=== PATIENT | male | born 1975 | race Caucasian/White ===

== ENCOUNTER 2017-07-27 17:41 | Inpatient (IN) | payer SELFPAY ==
[~2017-07-27] VITALS: Ht 182.9 cm; Wt 78.2 kg
[~2017-07-27 17:41] MED LIST: AMOX-355 PO; HYDR1TAB PO; SULF1TAB38 PO
[2017-07-27] MEDS ORDERED: NS IV 1000 ML 1,000 ML IV ONE (18:25)
[2017-07-27] MEDS ORDERED: FAMOTIDINE 20MG/2ML IV (PEPCID) IVP ONE (18:30)
[2017-07-27] MEDS ORDERED: ONDANSETRON 4 MG/2 ML (SDV) Z0FRAN IVP ONE (18:30)
[2017-07-27 18:34] LABS: BASOPHILS % (AUTO) 0 % (0-10); EOSINOPHILS # (AUTO) 0.2 10^3/uL (0.0-0.3); EOSINOPHILS % (AUTO) 1 % (0-10); LYMPHOCYTES # (AUTO) 2.2 X 10^3 (1.0-4.0); LYMPHOCYTES % (AUTO) 18 % (12-44); MEAN CORPUSCULAR HEMOGLOBIN 33 PG (25-34); MEAN CORPUSCULAR HGB CONC 35 G/DL (32-36); MEAN CORPUSCULAR VOLUME 93 FL (80-99); MEAN PLATELET VOLUME 8.8 FL (7.4-10.4); MONOCYTES # (AUTO) 0.9 X 10^3 (0.0-1.0); MONOCYTES % (AUTO) 7 % (0-12); NEUTROPHILS # (AUTO) 9.2 X 10^3 (1.8-7.8); NEUTROPHILS % (AUTO) 73 % (42-75); PLATELET COUNT 355 10^3/uL (130-400); RED BLOOD COUNT 5.24 10^6/uL (4.35-5.85); RED CELL DISTRIBUTION WIDTH 12.7 % (10.0-14.5); WHITE BLOOD COUNT 12.6 10^3/uL (4.3-11.0)
[2017-07-27] MEDS ORDERED: HYOSCYAMINE 0.125 MG (LEVSIN) TAB PO ONE (19:30)
[2017-07-27] MEDS ORDERED: NS 100 ML (IVPB) BAG IV ONE (19:30)
[2017-07-27] MEDS ORDERED: fentaNYL INJECTION 100 MCG/2 ML AMP IVP ONE ×2 (19:30→21:00)
[2017-07-27] MEDS ORDERED: IOHEXOL 350 MG/ML 100 ML (OMNIPAQUE 350) VIAL IV ONE (19:30)
[2017-07-27 19:33] LABS: BILIRUBIN,URINE NEGATIVE (NEGATIVE); KETONES,URINE 1+ (NEGATIVE); LEUKOCYTE ESTERASE ,URINE 1+ (NEGATIVE); NITRITE,URINE NEGATIVE (NEGATIVE); PH,URINE 5 (5-9); PROTEIN,URINE 1+ (NEGATIVE); UROBILINOGEN,URINE NORMAL (NORMAL)
--- NOTE | 2017-07-27 19:48 | Diagnostic Imaging Report ---
INDICATION: Abdominal pain. TECHNIQUE: Single-view chest at 7:13 p.m. CORRELATION STUDY: None. FINDINGS: Heart size is within normal limits. Mediastinum is slightly prominent. Vasculature is also slightly prominent. No pulmonary infiltrate. IMPRESSION: 1. Mediastinum and hilar structures do appear to be slightly prominent. Possibility of adenopathy is not completely excluded. Would consider short-term followup two-view chest imaging for reassessment. Dictated by: Dictated on workstation # [id number]
[2017-07-27 19:52] LABS: ALANINE AMINOTRANSFERASE 44 U/L (0-55); ALBUMIN 4.5 GM/DL (3.2-4.5); ALCOHOL < 10 MG/DL (<10); ANION GAP 9 MMOL/L (5-14); ASPARTATE AMINO TRANSFERASE 30 U/L (5-34); BILIRUBIN,TOTAL 0.8 MG/DL (0.1-1.0); BLOOD UREA NITROGEN 19 MG/DL (7-18); BUN/CREATININE RATIO 22; CARBON DIOXIDE 23 MMOL/L (21-32); CHLORIDE 106 MMOL/L (98-107); CREATININE SERUM 0.86 MG/DL (0.60-1.30); GFR ESTIMATED > 60; GLUCOSE 110 MG/DL (70-105); LIPASE 8 U/L (8-78); MAGNESIUM 2.1 MG/DL (1.8-2.4); POTASSIUM 4.1 MMOL/L (3.6-5.0); SODIUM 138 MMOL/L (135-145); TOTAL PROTEIN 8.3 GM/DL (6.4-8.2); hs C REACTIVE PROTEIN 0.07 MG/DL (0.00-0.50)
--- NOTE | 2017-07-27 20:03 | Diagnostic Imaging Report ---
INDICATION: Abdominal pain, nausea, vomiting, dizziness and weakness since this weekend.. TECHNIQUE: Supine view of the abdomen 7:13 PM CORRELATION STUDY: None FINDINGS: There is a rather prominent gas distention of the gastrointestinal tract. The stomach appears to be significantly distended with likely a significant amount of retained gastric contents. Prominent gas distention of the small bowel. There is also however gas noted within the colon. Bowel gas pattern somewhat indeterminate. No gross free intraperitoneal air. IMPRESSION: 1. Rather prominent distention of the gastrointestinal tract. This appears to involve the stomach, small bowel as well as likely colon, a somewhat unusual appearance. This may reflect a pronounced ileus. Underlying obstruction not completely excluded. Dictated by: Dictated on workstation # [id number]
--- NOTE | 2017-07-27 20:28 | Diagnostic Imaging Report ---
PROCEDURE: CT abdomen and pelvis with contrast. TECHNIQUE: Multiple contiguous axial images were obtained through the abdomen and pelvis after administration of intravenous contrast. INDICATION: 41-year-old male with generalized abdominal pain. COMPARISONS: None. FINDINGS: The lung bases are clear. Cardiac contour is normal. Liver shows uniform attenuation. Gallbladder shows no evidence of radiopaque stones, sludge, wall thickening or pericholecystic fluid. Spleen and GE junction are normal. Stomach is moderately distended with foodstuff and gas. The duodenal sweep is mostly decompressed. Pancreas shows sharp margins. Adrenals are normal. Kidneys appear normal in size, composition and contour with symmetrical perfusion and excretion of contrast. The bladder is underfilled. The nonopacified loops of small bowel do show a mid segmental distention with fluid-filled loops of bowel with air-fluid levels. The ileum is normal in caliber. In the right upper quadrant, there is some swirling of the mesenteric root suggesting a possible intestinal hernia versus small volvulus. The large bowel contains mostly liquid stool but is nondistended. There is no free air free fluid or adenopathy. IMPRESSION: 1. Findings consistent with a near-complete mid small bowel obstruction, possibly due to internal hernia versus possible small segment of intestinal volvulus. 2. Additional nonemergent findings, as described above. Dictated by: Dictated on workstation # [id number]
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
[2017-07-27] MEDS ORDERED: LORazepam INJ 2 MG/ML (ATIVAN) VIAL ONE (20:53)
[2017-07-27] MEDS ORDERED: LORazepam INJ 2 MG/ML (ATIVAN) VIAL IVP ONE (21:00)
[2017-07-27] MEDS ORDERED: HURRICAINE EXT TUBE (BENZOCAINE) ONE (21:06)
[2017-07-27 21:40] VITALS: BP 131/89
[2017-07-27] MEDS: D5 1/2 NS W/KCL 20 MEQ/L 1,000 ML IV ONE ×2 (22:32→22:56)
[2017-07-27] MEDS: D5 1/2 NS W/KCL 20 MEQ/L 1,000 ML IV SCH (22:32)
[2017-07-27] MEDS ORDERED: ONDANSETRON 4 MG/2 ML (SDV) Z0FRAN IV PRN (22:45)
[2017-07-27] MEDS: fentaNYL INJECTION 100 MCG/2 ML AMP IV PRN (23:58)
[2017-07-28 03:18] VITALS: BP 126/82
[2017-07-28] MEDS: fentaNYL INJECTION 100 MCG/2 ML AMP IV PRN ×4 (05:05→20:00)
[2017-07-28] MEDS: D5 1/2 NS W/KCL 20 MEQ/L 1,000 ML IV SCH ×3 (05:45→22:13)
[2017-07-28 06:14] LABS: BASOPHILS % (AUTO) 0 % (0-10); EOSINOPHILS # (AUTO) 0.1 10^3/uL (0.0-0.3); EOSINOPHILS % (AUTO) 1 % (0-10); LYMPHOCYTES # (AUTO) 1.3 X 10^3 (1.0-4.0); LYMPHOCYTES % (AUTO) 16 % (12-44); MEAN CORPUSCULAR HEMOGLOBIN 33 PG (25-34); MEAN CORPUSCULAR HGB CONC 35 G/DL (32-36); MEAN CORPUSCULAR VOLUME 95 FL (80-99); MEAN PLATELET VOLUME 8.6 FL (7.4-10.4); MONOCYTES # (AUTO) 0.8 X 10^3 (0.0-1.0); MONOCYTES % (AUTO) 10 % (0-12); NEUTROPHILS % (AUTO) 73 % (42-75); PLATELET COUNT 289 10^3/uL (130-400); RED BLOOD COUNT 4.74 10^6/uL (4.35-5.85); RED CELL DISTRIBUTION WIDTH 12.6 % (10.0-14.5); WHITE BLOOD COUNT 8.3 10^3/uL (4.3-11.0)
[2017-07-28 06:40] LABS: ALANINE AMINOTRANSFERASE 37 U/L (0-55); ANION GAP 9 MMOL/L (5-14); ASPARTATE AMINO TRANSFERASE 25 U/L (5-34); BILIRUBIN,TOTAL 0.7 MG/DL (0.1-1.0); BLOOD UREA NITROGEN 15 MG/DL (7-18); BUN/CREATININE RATIO 19; CALCIUM 8.6 MG/DL (8.5-10.1); CARBON DIOXIDE 21 MMOL/L (21-32); CHLORIDE 107 MMOL/L (98-107); CREATININE SERUM 0.79 MG/DL (0.60-1.30); GFR ESTIMATED > 60; GLUCOSE 119 MG/DL (70-105); POTASSIUM 3.8 MMOL/L (3.6-5.0); SODIUM 137 MMOL/L (135-145); TOTAL PROTEIN 7.2 GM/DL (6.4-8.2)
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
[2017-07-28 08:33] VITALS: BP 122/84
[2017-07-28] MEDS: FAMOTIDINE 20MG/2ML IV (PEPCID) IVP SCH ×2 (08:48→20:00)
[2017-07-28 12:40] VITALS: BP 127/80
[2017-07-28 17:00] VITALS: BP 121/83
[2017-07-28 20:30] VITALS: BP 125/80
[2017-07-29 00:28] VITALS: BP 127/79
[2017-07-29 04:20] VITALS: BP 126/82
[2017-07-29] MEDS: D5 1/2 NS W/KCL 20 MEQ/L 1,000 ML IV SCH ×2 (06:29→14:43)
[2017-07-29 07:38] VITALS: BP 120/81
[2017-07-29] MEDS: FAMOTIDINE 20MG/2ML IV (PEPCID) IVP SCH ×2 (08:43→21:28)
[2017-07-29] MEDS: fentaNYL INJECTION 100 MCG/2 ML AMP IV PRN ×2 (08:43→14:30)
[2017-07-29] MEDS ORDERED: DIATRIZOATE MEGLUM/SODIUM 37% 120 ML (GASTROGRAFIN) NG ONE (09:45)
--- NOTE | 2017-07-29 11:59 | Diagnostic Imaging Report ---
EXAMINATION: Gastrografin small bowel follow through. INDICATION: Bowel obstruction. TECHNIQUE: Manager Convention image of the abdomen was performed. Subsequently, the patient was given 120 mL of Gastrografin administered via NG tube and serial images of the abdomen were obtained. FINDINGS: Manager Convention image of the abdomen demonstrates small amount of fecal material. No significant abnormality. There is prompt gastric emptying into the small bowel loops. There is a transient time through the small bowel of 0.5 hours. The small bowel loops are from mildly dilated particularly the proximal jejunal loops. No definite transition point is seen. Contrast is seen in the colon in 30 minutes. IMPRESSION: There is mild dilatation of small bowel loops with rapid transit time. This could be related to enteritis. Correlate clinically. Dictated by: Dictated on workstation # [id number]
[2017-07-29 12:00] VITALS: BP 118/82
--- NOTE | 2017-07-29 15:40 | Progress Note (SOAP) ---
Subjective Date Seen by Provider: Jul 29, 2017 Time Seen by Provider: 15:38 Subjective/Events-last exam Passed flatus and has had several bowel movements. Small bowel contrast study negative for mechanical obstruction Review of Systems General: No Chills, No Night Sweats, No Fatigue, No Malaise HEENT: No Head Aches, No Eye Pain, No Ear Pain, No Dysphasia, No Sinus Congestion, No Post Nasal Drip, No Sore Throat Pulmonary: Cough Cardiovascular: No: Chest Pain, Palpitations, Orthopnea, Paroxysmal Noc. Dyspnea, Edema, Lt Headedness Gastrointestinal: No: Nausea, Vomiting, Abdominal Pain, Diarrhea, Constipation , Melena, Hematochezia Genitourinary: No Dysuria, No Frequency, No Incontinence, No Hematuria, No Retention Musculoskeletal: No: other, neck pain, shoulder pain, arm pain, back pain, hand pain, leg pain, foot pain Neurological: No: Weakness, Numbness, Incoordination, Change in speech, Confusion, Seizures, Other Objective Exam Vital Signs Date Time Temp Pulse Resp B/P (MAP) Pulse Ox O2 Delivery O2 Flow Rate FiO2 07/29/17 12:00 98.0 83 20 118/82 92 Room Air 07/29/17 07:38 97.1 106 18 120/81 96 Room Air 07/29/17 04:20 99.0 82 16 126/82 95 Room Air 07/29/17 00:28 99.6 84 20 127/79 94 Room Air 07/28/17 20:30 97.6 96 22 125/80 96 Room Air 07/28/17 17:00 98.9 97 16 121/83 97 Room Air I & O 07/30/17 07:00 Intake Total 0 ml Output Total 1050 ml Balance -1050 ml Capillary Refill : Less Than 3 Seconds General Appearance: No Apparent Distress Neck: Normal Inspection Respiratory: Lungs Clear Cardiovascular: Regular Rate, Rhythm Gastrointestinal: non tender, soft Extremity: Normal Inspection Neurologic/Psychiatric: Oriented x3 Skin: Warm/Dry Assessment/Plan Assessment/Plan Assess & Plan/Chief Complaint Resolved partial small bowel obstruction. Will advance diet and possibly discharge in am Final Diagnosis Partial small bowel obstruction Clinical Quality Measures DVT/VTE Risk/Contraindication: Risk Factor Score Per Nursin RFS Level Per Nursing on Admit: 2=Moderate HOLLAND ALEXIS MD Jul 29, 2017 3:40 pm
[2017-07-29 16:36] VITALS: BP 131/87
[2017-07-29 20:00] VITALS: BP 128/80
[2017-07-30 00:42] VITALS: BP 126/73
[2017-07-30 08:00] VITALS: BP 135/86
[2017-07-30] MEDS: FAMOTIDINE 20MG/2ML IV (PEPCID) IVP SCH (08:53)
[2017-07-30 11:00] VITALS: BP 135/86
== END 2017-07-30 11:00 | disposition home or self-care (01) | DRG 390 ==
LOC: EDUNIT# 17:41 → ER 17:43 → 4TH 20:49
PROVIDERS: ADMIT Surgery; ATTEND Surgery
PROC: 0D9670Z Drainage of Stomach with Drainage Device, Via Natural or Artificial Opening (ICD-10-PCS; principal; 2017-07-27)
DX: K56.60 Unspecified intestinal obstruction (principal); F12.129 Cannabis abuse with intoxication, unspecified; F15.129 Other stimulant abuse with intoxication, unspecified; R40.0 Somnolence
CPT/HCPCS: 36415; 71010; 74000; 74177; 74250; 80053; 80306; 80320; 81000; 83690; 83735; 85025; 86141; 96361; 96374; 96375; 96376

== ENCOUNTER 2019-09-12 01:10 | Emergency (ER) | payer SELFPAY ==
[~2019-09-12] VITALS: Ht 172.7 cm; Wt 79.5 kg
[2019-09-12] MEDS ORDERED: KETOROLAC 30 MG/ML VIAL IVP ONE (01:30)
[2019-09-12 01:36] LABS: BASOPHILS % (AUTO) 1 % (0-10); EOSINOPHILS # (AUTO) 0.2 10^3/uL (0.0-0.3); EOSINOPHILS % (AUTO) 2 % (0-10); HEMATOCRIT 45 % (40-54); HEMOGLOBIN 15.5 G/DL (13.3-17.7); LYMPHOCYTES # (AUTO) 2.7 X 10^3 (1.0-4.0); LYMPHOCYTES % (AUTO) 31 % (12-44); MEAN CORPUSCULAR HEMOGLOBIN 32 PG (25-34); MEAN CORPUSCULAR HGB CONC 35 G/DL (32-36); MEAN CORPUSCULAR VOLUME 93 FL (80-99); MEAN PLATELET VOLUME 8.4 FL (7.4-10.4); MONOCYTES # (AUTO) 0.9 X 10^3 (0.0-1.0); MONOCYTES % (AUTO) 10 % (0-12); NEUTROPHILS # (AUTO) 4.9 X 10^3 (1.8-7.8); NEUTROPHILS % (AUTO) 56 % (42-75); PLATELET COUNT 320 10^3/uL (130-400); RED CELL DISTRIBUTION WIDTH 12.7 % (10.0-14.5); WHITE BLOOD COUNT 8.8 10^3/uL (4.3-11.0)
[2019-09-12] MEDS ORDERED: IOHEXOL 350 MG/ML 100 ML (OMNIPAQUE 350) VIAL IV ONE ×2 (01:45→03:15)
[2019-09-12] MEDS ORDERED: HOLD METFORMIN - RECEIVED CONTRAST 20 ML VIAL IV SCH ×2 (01:45→03:15)
[2019-09-12] MEDS ORDERED: NS 100 ML (IVPB) BAG IV ONE ×2 (01:45→03:15)
[2019-09-12 01:55] LABS: ALANINE AMINOTRANSFERASE 34 U/L (0-55); ALBUMIN 4.5 GM/DL (3.2-4.5); ALKALINE PHOSPHATASE 76 U/L (40-136); BILIRUBIN,TOTAL 0.6 MG/DL (0.1-1.0); BUN/CREATININE RATIO 27; CALCIUM 9.6 MG/DL (8.5-10.1); CARBON DIOXIDE 24 MMOL/L (21-32); CHLORIDE 102 MMOL/L (98-107); CREATININE SERUM 0.89 MG/DL (0.60-1.30); GFR ESTIMATED > 60; GLUCOSE 104 MG/DL (70-105); POTASSIUM 3.4 MMOL/L (3.6-5.0); SODIUM 139 MMOL/L (135-145); TOTAL PROTEIN 7.8 GM/DL (6.4-8.2)
[2019-09-12 03:00] VITALS: BP 128/84
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
--- NOTE | 2019-09-12 06:10 | Diagnostic Imaging Report ---
INDICATION: Right-sided dental pain. TECHNIQUE: Axial CT of the head and face is performed with and without intravenous contrast. COMPARISON: 03/25/2013 FINDINGS: Head: The ventricles and cortical sulci are age-appropriate. There is no midline shift or mass effect. No acute intracranial hemorrhage is seen. There is no CT evidence of acute territorial ischemia. The calvarium appears intact. No enhancing lesions are seen. Face: The pterygoid plates are intact. The mandible is intact. The zygomatic arches are intact. The nasal bones demonstrate mild offset and deformity which appears chronic. There is a chronic defect in the right lamina papyracea. There is no fracture of the maxillary sinus pettit. No periorbital or post septal edema is seen. The globes are intact. No rim-enhancing fluid collection is seen. IMPRESSION: 1. No acute intracranial hemorrhage or CT evidence of acute territorial ischemia. 2. No significant periapical lucencies or sinus disease. No rim-enhancing fluid collection is seen. Dictated by: Dictated on workstation # [id number]
== END 2019-09-12 03:04 | disposition home or self-care (01) ==
LOC: EDUNIT# 01:12 → ER 01:15
DX: R51 Headache (principal); F17.210 Nicotine dependence, cigarettes, uncomplicated
CPT/HCPCS: 36415; 70470; 70488; 80053; 80320; 85025; 86141; 96374

== ENCOUNTER 2020-09-04 10:19 | Emergency (ER) | payer SELFPAY ==
[~2020-09-04] VITALS: Ht 175.2 cm; Wt 83.9 kg
[2020-09-04 10:58] VITALS: BP 119/75
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
[2020-09-04] MEDS ORDERED: PRD20T PO (11:29)
[2020-09-04] MEDS ORDERED: SULF1TAB35 PO (11:29)
== END 2020-09-04 11:38 | disposition home or self-care (01) ==
LOC: EDUNIT# 10:19 → ER 10:20
DX: L08.9 Local infection of the skin and subcutaneous tissue, unspecified (principal); F17.210 Nicotine dependence, cigarettes, uncomplicated; Z79.52 Long term (current) use of systemic steroids
CPT/HCPCS: 87070; 87077; 87205; 99282